=== PATIENT | male | born 1940 | race Caucasian/White ===

== ENCOUNTER 2019-08-07 13:47 | Outpatient (CLI) | payer MEDICARE, OTHER | END 2019-08-07 23:59 | disposition home or self-care (01) | LOC: RAD 13:47 | PROVIDERS: ATTEND Otolaryngology | DX: R49.0 Dysphonia (principal) | CPT/HCPCS: 74220; 74230 ==

== ENCOUNTER 2025-04-09 12:12 | Outpatient (CLI) | payer OTHER ==
--- NOTE | 2025-04-09 18:50 | CARDIOLOGY REPORT ---
APPROVED REPORT EXAM: Comprehensive 2D, Doppler, and color-flow Echocardiogram. Patient Location: OUT-PATIENT Blood Pressure: 138 / 63 mmHg Heart Rate: 60 bpm Rhythm: SINUS Indications CORONARY DISEASE S/P CABG X 3 WITH PFO REPAIR 2018 ([place]) HYPERTENSION Assistant Child Care Teacher: Corona CASILLAS MD ([place]) / [facility] Previous echo: NONE AVAILABLE 2D Dimensions RVDd 3.3 cm LA Major 5.5 cm LA Minor 4.7 cm LVOT Diameter 2.62 (1.8-2.4cm) M-Mode Dimensions Left Atrium(MM) 3.79 (2.5-4.0cm) IVSd 1.04 (0.7-1.1cm) LVDd 4.84 (4.0-5.6cm) Aortic Root 4.18 (2.2-3.7cm) PWd 1.13 (0.7-1.1cm) Aortic Cusp Exc 2.20 (1.5-2.0cm) IVSs 1.01 cm MV EPSS 1.1 (<0.5cm) LVDs 4.29 (2.0-3.8cm) FS (%) 11 % PWs 1.07 cm ESV(Teich) 82.5 ml LVEF(%) 25 (>50%) Aortic Valve AoV Peak Camilo. 140.9 cm/s AoV VTI 27.9 cm AO Peak GR. 7.4 mmHg AO Mean GR. 4 mmHg LVOT VTI 21.96 cm LVOT Peak Camilo. 120.2 cm/s MADHURI (VMAX) 4.59 cm2 MADHURI (VTI) 4.24 cm2 AV DI 0.85 % Mitral Valve MV E Velocity 43.1 cm/s MV DECEL TIME 223 ms MV A Velocity 70.0 cm/s MV PHT 48 ms E/A Ratio 0.6 MVA (PHT) 4.50 cm2 TDI E/Medial E' 6.9 Pulmonary Vein S2 Velocity 53.58 cm/s PVa Duration 114 msec LEFT VENTRICLE Normal LV size and wall thickness. Multisegmental wall motion abnormalities. Overall systolic function is moderetely abormal. LVEF is 35-40%. GLS - 11.1 %. RIGHT VENTRICLE RV is normal size with moderately reduced function. Intact, mobile interatrial septum - no flow detected s/p surgical repair. ATRIA Left atrium is moderately dilated. AORTIC VALVE Trileaflet AV appears moderately sclerotic without stenosis. Trace insufficiency. MADHURI likely overestimated due to dilated root. MITRAL VALVE Mild MV annular calcification with thickened leaflets without stenosis. Trace regurgitation. TRICUSPID VALVE TV appears structurally normal with mild regurgitation. PULMONIC VALVE Normal PV without stenosis, mild insufficiency. GREAT VESSELS Aortic root is mildly dilated at 4.18cm. Normal appearing arch with normal flow velocities. Ascending aorta is normal in size. PERICARDIUM Normal pericardium. No effusion. Conclusion Normal LV size and wall thickness. Multisegmental wall motion abnormalities. Overall systolic function is moderetely abormal. LVEF is 35-40%. GLS - 11.1 %. RV is normal size with moderately reduced function. Intact, mobile interatrial septum - no flow detected s/p surgical repair. Left atrium is moderately dilated. Trileaflet AV appears moderately sclerotic without stenosis. Trace insufficiency. MADHURI likely overestimated due to dilated root. Mild MV annular calcification with thickened leaflets without stenosis. Trace regurgitation. TV appears structurally normal with mild regurgitation. Normal PV without stenosis, mild insufficiency. Aortic root is mildly dilated at 4.18cm. Normal appearing arch with normal flow velocities. Ascending aorta is normal in size. Normal pericardium. No effusion.
== END 2025-04-09 23:59 | disposition home or self-care (01) ==
LOC: CARD DIAG 12:12
PROVIDERS: ATTEND Chiropractor
DX: I08.8 Other rheumatic multiple valve diseases (principal); I77.810 Thoracic aortic ectasia; I25.9 Chronic ischemic heart disease, unspecified; I25.10 Atherosclerotic heart disease of native coronary artery without angina pectoris; Z95.1 Presence of aortocoronary bypass graft
CPT/HCPCS: 93306